=== PATIENT | male | born 1950 | race Caucasian/White ===

== ENCOUNTER 2023-02-04 08:43 | Emergency (ER) | payer MEDICARE, OTHER ==
[2023-02-04] MEDS ORDERED: Take Home: Cyclobenzaprine 10 MG Tab, 4 Tab Pack PO ONE (09:28)
== END 2023-02-04 10:02 | disposition home or self-care (01) ==
LOC: VM.ED 08:43
DX: M54.31 Sciatica, right side (principal); K21.9 Gastro-esophageal reflux disease without esophagitis; I48.91 Unspecified atrial fibrillation; I12.9 Hypertensive chronic kidney disease with stage 1 through stage 4 chronic kidney disease, or unspecified chronic kidney disease; E11.22 Type 2 diabetes mellitus with diabetic chronic kidney disease; N18.9 Chronic kidney disease, unspecified; N40.0 Benign prostatic hyperplasia without lower urinary tract symptoms; E66.9 Obesity, unspecified; Z68.30 Body mass index [BMI] 30.0-30.9, adult; Z79.4 Long term (current) use of insulin; Z79.82 Long term (current) use of aspirin; Z79.899 Other long term (current) drug therapy
CPT/HCPCS: 99283; 99284; A9270-GY

== ENCOUNTER 2024-03-30 06:58 | Emergency (ER) | payer MEDICARE, OTHER ==
[2024-03-30 08:00] LABS: BASOPHILS ABSOLUTE AUTO 0.1 x10^3/uL (0.0-0.2); BASOPHILS PERCENT AUTO 0.4 % (0.2-1.2); EOSINOPHILS ABSOLUTE AUTO 0.2 x10^3/uL (0.0-0.5); EOSINOPHILS PERCENT AUTO 1.2 % (0.0-4.0); HEMATOCRIT 35.5 % (40.0-52.0); HEMOGLOBIN 12.6 g/dL (14.0-18.0); IMMATURE GRAN ABSOLUTE AUTO 0.15 x10^3/uL (0.00-0.07); LYMPHOCYTES ABSOLUTE AUTO 2.1 x10^3/uL (1.0-4.8); LYMPHOCYTES PERCENT AUTO 14.7 % (25.0-50.0); MEAN CORPUSCULAR HEMOGLOBIN 30.2 pg (26.0-32.0); MEAN CORPUSCULAR HGB CONC 35.5 g/dL (32.0-36.0); MEAN CORPUSCULAR VOLUME 85.1 fL (78.0-93.0); MONOCYTES ABSOLUTE AUTO 0.9 x10^3/uL (0.0-0.8); MONOCYTES PERCENT AUTO 6.6 % (2.0-11.0); NEUTROPHILS ABSOLUTE AUTO 10.6 x10^3/uL (1.8-7.7); PLATELET COUNT,PLT 332 x10^3/uL (130-400); RED BLOOD CELL COUNT 4.17 x10^6/uL (4.5-6.0)
[2024-03-30 08:18] LABS: A/G RATIO 1.03; ALANINE AMINOTRANSFERASE,ALT 21 U/L (16-63); ALBUMIN 3.8 g/dL (3.4-5.0); ALKALINE PHOSPHATASE 130 U/L (46-116); ANION GAP 15.3 mmol/L (5-15); ASPARTATE AMNIOTRANSFERASE,AST 13 U/L (15-37); BILIRUBIN TOTAL 0.4 mg/dL (0.2-1.0); BLOOD UREA NITROGEN,BUN 82 mg/dL (7-18); CARBON DIOXIDE,CO2 28 mmol/L (21-32); CHLORIDE,CL 93 mmol/L (98-107); CREATININE 2.9 mg/dL (0.70-1.30); ESTIMATED GFR 22 mL/min (>=60); GLUCOSE RANDOM 222 mg/dL (70-99); LIPASE 23 U/L (19-71); POTASSIUM,K 3.3 mmol/L (3.5-5.1); PROTEIN TOTAL,TP 7.5 g/dL (6.4-8.2); SODIUM,NA 133 mmol/L (136-145)
[2024-03-30] MEDS: Lactated Ringers 1,000 ML IV SCH ×2 (08:20→10:15)
[2024-03-30] MEDS: Loperamide 2 MG Cap PO ONE (08:20)
[2024-03-30] MEDS: Iopamidol 612 MG/ML 100 ML Bottle IVPUSH ONE (08:21)
[2024-03-30 10:26] LABS: CALCIUM 8.9 mg/dL (8.5-10.1); CARBON DIOXIDE,CO2 29 mmol/L (21-32); CHLORIDE,CL 94 mmol/L (98-107); CREATININE 2.6 mg/dL (0.70-1.30); GLUCOSE RANDOM 191 mg/dL (70-99); POTASSIUM,K 3.6 mmol/L (3.5-5.1); SODIUM,NA 134 mmol/L (136-145)
[2024-03-30 10:27] LABS: ANION GAP 14.6 mmol/L (5-15); ESTIMATED GFR 25 mL/min (>=60)
[2024-03-30 10:28] LABS: BLOOD UREA NITROGEN,BUN 81 mg/dL (7-18)
[2024-03-30 11:34] LABS: APPEARANCE,URINE CLEAR (CLEAR); BILIRUBIN,URINE NEGATIVE (NEGATIVE); COLOR,URINE YELLOW (YELLOW); GLUCOSE,URINE NEGATIVE (NEGATIVE); KETONES,URINE NEGATIVE (NEGATIVE); LEUKOCYTE ESTERASE,URINE NEGATIVE (NEGATIVE); NITRITE,URINE NEGATIVE (NEGATIVE); OCCULT BLOOD,URINE NEGATIVE (NEGATIVE); PH,URINE 5.5 (5.0-8.0); PROTEIN,URINE NEGATIVE (NEGATIVE); UROBILINOGEN,URINE 0.2 EU/dL (0.2)
[2024-03-30 11:36] LABS: BACTERIA,URINE RARE /HPF (NOT SEEN); RBC,URINE NOT SEEN /HPF (NOT SEEN); SQUAMOUS EPITHELIAL CELLS,UR NOT SEEN /HPF (NOT SEEN); WBC,URINE NOT SEEN /HPF (NOT SEEN)
== END 2024-03-30 11:31 | disposition home or self-care (01) ==
LOC: VM.ED 06:58
DX: R19.7 Diarrhea, unspecified (principal); N32.9 Bladder disorder, unspecified; N17.9 Acute kidney failure, unspecified; K21.9 Gastro-esophageal reflux disease without esophagitis; E11.22 Type 2 diabetes mellitus with diabetic chronic kidney disease; I12.9 Hypertensive chronic kidney disease with stage 1 through stage 4 chronic kidney disease, or unspecified chronic kidney disease; N18.9 Chronic kidney disease, unspecified; E11.311 Type 2 diabetes mellitus with unspecified diabetic retinopathy with macular edema; E66.9 Obesity, unspecified; Z79.4 Long term (current) use of insulin; Z79.82 Long term (current) use of aspirin
CPT/HCPCS: 36415; 74176; 80048; 80053; 81001; 83690; 85025; 96360; 96361; 99284; 99284-25; A9270-GY; J7120

== ENCOUNTER 2024-04-08 10:35 | Inpatient (IN) | payer MEDICARE, OTHER ==
[2024-04-08] MEDS ORDERED: Sodium Chloride 0.9% 10 ML Syringe FLUSH PRN (10:50)
[2024-04-08] MEDS: Lactated Ringers 1,000 ML IV ONE ×2 (11:08→14:34)
[2024-04-08 11:11] LABS: BASOPHILS PERCENT AUTO 0.2 % (0.2-1.2); EOSINOPHILS ABSOLUTE AUTO 0.2 x10^3/uL (0.0-0.5); EOSINOPHILS PERCENT AUTO 1.1 % (0.0-4.0); HEMATOCRIT 33.2 % (40.0-52.0); HEMOGLOBIN 11.8 g/dL (14.0-18.0); LYMPHOCYTES ABSOLUTE AUTO 1.7 x10^3/uL (1.0-4.8); LYMPHOCYTES PERCENT AUTO 11.4 % (25.0-50.0); MEAN CORPUSCULAR HEMOGLOBIN 30.4 pg (26.0-32.0); MEAN CORPUSCULAR HGB CONC 35.5 g/dL (32.0-36.0); MEAN CORPUSCULAR VOLUME 85.6 fL (78.0-93.0); MONOCYTES PERCENT AUTO 6.6 % (2.0-11.0); NEUTROPHILS ABSOLUTE AUTO 11.6 x10^3/uL (1.8-7.7); PLATELET COUNT,PLT 308 x10^3/uL (130-400); RED BLOOD CELL COUNT 3.88 x10^6/uL (4.5-6.0); WHITE BLOOD CELL COUNT,WBC 14.6 x10^3/uL (4.0-10.0)
[2024-04-08 11:44] LABS: LACTIC ACID 3.3 mmol/L (0.4-2.0)
[2024-04-08 11:58] LABS: A/G RATIO 1.06; ALBUMIN 3.6 g/dL (3.4-5.0); ANION GAP 18.7 mmol/L (5-15); BILIRUBIN TOTAL 0.5 mg/dL (0.2-1.0); C-REACTIVE PROTEIN 1.24 mg/dL (<=0.50); EST CRCL DRUG DOSING (CG) 19.98 mL/min; MAGNESIUM 1.7 mg/dL (1.8-2.4); POTASSIUM,K 3.7 mmol/L (3.5-5.1)
[2024-04-08 11:59] LABS: CREATININE 3.4 mg/dL (0.70-1.30)
[2024-04-08] MEDS: Vancomycin 125 MG Cap PO SCH (12:08)
[2024-04-08 12:17] LABS: PROTHROMBIN TIME 10.1 SEC (8.9-11.5); PTT,PARTIAL THROMBOPLSTIN TIME 31.5 SEC (21.9-33.8)
[2024-04-08] MEDS ORDERED: Vancomycin 125 MG Cap PO SCH (13:00)
[2024-04-08 13:39] LABS: CORONAVIRUS COVID-19 NAA NEGATIVE (NEGATIVE); INFLUENZA A NAA NEGATIVE (NEGATIVE); INFLUENZA B NAA NEGATIVE (NEGATIVE); RESPIRATORY SYNCYTIAL VIR NAA NEGATIVE (NEGATIVE)
[2024-04-08 15:05] LABS: BILIRUBIN,URINE NEGATIVE (NEGATIVE); COLOR,URINE YELLOW (YELLOW); GLUCOSE,URINE NEGATIVE (NEGATIVE); KETONES,URINE NEGATIVE (NEGATIVE); LEUKOCYTE ESTERASE,URINE SMALL (NEGATIVE); NITRITE,URINE NEGATIVE (NEGATIVE); OCCULT BLOOD,URINE NEGATIVE (NEGATIVE); PROTEIN,URINE NEGATIVE (NEGATIVE); UROBILINOGEN,URINE 0.2 EU/dL (0.2)
[2024-04-08 15:06] LABS: APPEARANCE,URINE SLIGHTLY CLOUDY (CLEAR)
[2024-04-08 15:12] LABS: BACTERIA,URINE RARE /HPF (NOT SEEN); MUCUS,URINE OCCASIONAL /LPF (NOT SEEN); RBC,URINE 0-5 /HPF (NOT SEEN); SQUAMOUS EPITHELIAL CELLS,UR NOT SEEN /HPF (NOT SEEN)
[2024-04-08] MEDS ORDERED: Acetaminophen/Diphenhydramine 500-25 MG Tab PO PRN (16:48)
[2024-04-08] MEDS ORDERED: Calcium Carbonate 750 MG Tab.Chew PO PRN (16:48)
[2024-04-08] MEDS ORDERED: Ondansetron 4 MG Tab.DIS PO PRN (16:59)
[2024-04-08] MEDS ORDERED: Polyethylene Glycol 3350 Powder 17 GM Packet PO PRN (16:59)
[2024-04-08] MEDS: Insulin Lispro 100 Units/ML 3 ML Vial SUBCUT SCH (18:06)
[2024-04-08] MEDS: Pantoprazole 40 MG Tab.CR PO SCH (18:07)
[2024-04-08] MEDS: Fluticasone Propionate Nasal Spray 9.9 ML BOTTLE NASBOTH SCH (21:11)
[2024-04-08] MEDS: atorvaSTATin 10 MG Tab PO SCH (21:13)
[2024-04-09] MEDS: Aspirin 81 MG Tab.Chew PO SCH (02:36)
[2024-04-09] MEDS: Tamsulosin 0.4 MG Cap.ER PO SCH (02:36)
[2024-04-09 07:17] LABS: BASOPHILS PERCENT AUTO 0.3 % (0.2-1.2); EOSINOPHILS ABSOLUTE AUTO 0.3 x10^3/uL (0.0-0.5); HEMATOCRIT 32.1 % (40.0-52.0); HEMOGLOBIN 11.2 g/dL (14.0-18.0); LYMPHOCYTES ABSOLUTE AUTO 2.3 x10^3/uL (1.0-4.8); LYMPHOCYTES PERCENT AUTO 18.2 % (25.0-50.0); MEAN CORPUSCULAR HEMOGLOBIN 30.1 pg (26.0-32.0); MEAN CORPUSCULAR HGB CONC 34.9 g/dL (32.0-36.0); MEAN CORPUSCULAR VOLUME 86.3 fL (78.0-93.0); MONOCYTES ABSOLUTE AUTO 0.9 x10^3/uL (0.0-0.8); MONOCYTES PERCENT AUTO 7.2 % (2.0-11.0); NEUTROPHILS ABSOLUTE AUTO 8.8 x10^3/uL (1.8-7.7); NEUTROPHILS PERCENT AUTO 71.5 % (50.0-80.0); PLATELET COUNT,PLT 290 x10^3/uL (130-400); RED BLOOD CELL COUNT 3.72 x10^6/uL (4.5-6.0); WHITE BLOOD CELL COUNT,WBC 12.4 x10^3/uL (4.0-10.0)
[2024-04-09 07:33] LABS: CALCIUM 8.9 mg/dL (8.5-10.1); CREATININE 2.9 mg/dL (0.70-1.30); EST CRCL DRUG DOSING (CG) 22.69 mL/min; MAGNESIUM 1.8 mg/dL (1.8-2.4); POTASSIUM,K 3.3 mmol/L (3.5-5.1)
[2024-04-09 07:40] LABS: ANION GAP 12.3 mmol/L (5-15)
[2024-04-09] MEDS: Ferrous Sulfate 325 MG Tab PO SCH (08:25)
[2024-04-09] MEDS: Hydrochlorothiazide 12.5 MG Cap PO SCH (08:25)
[2024-04-09] MEDS: Ascorbic Acid 500 MG Tab PO SCH (08:25)
[2024-04-09] MEDS: atorvaSTATin 10 MG Tab PO SCH (08:26)
[2024-04-09] MEDS: Folic Acid 1 MG Tab PO SCH (08:27)
[2024-04-09] MEDS: Cholecalciferol (Vitamin D3) 10 MCG Tab PO SCH (08:27)
[2024-04-09] MEDS: Losartan 50 MG Tab PO SCH (08:27)
[2024-04-09] MEDS: Insulin Glarg,Human.Rec.Analog 100 Unit/ML 10 ML Vial SUBCUT SCH (08:30)
[2024-04-09] MEDS ORDERED: Tamsulosin 0.4 MG Cap.ER PO SCH (09:00)
[2024-04-09] MEDS ORDERED: Insulin Glarg,Human.Rec.Analog 100 Unit/ML 10 ML Vial SUBCUT SCH (09:00)
[2024-04-09] MEDS ORDERED: Aspirin 81 MG Tab.Chew PO SCH (09:00)
[2024-04-09] MEDS: Potassium Chloride 10 MEQ Tab.ER PO SCH (09:27)
[2024-04-09] MEDS: Enoxaparin 40 MG/0.4 ML Syringe SUBCUT SCH (09:42)
[2024-04-09] MEDS ORDERED: Enoxaparin 30 MG/0.3 ML Syringe SUBCUT SCH (12:00)
[2024-04-09] MEDS: Insulin Lispro 100 Units/ML 3 ML Vial SUBCUT SCH (12:02)
[2024-04-10 07:40] LABS: BASOPHILS PERCENT AUTO 0.2 % (0.2-1.2); EOSINOPHILS ABSOLUTE AUTO 0.3 x10^3/uL (0.0-0.5); EOSINOPHILS PERCENT AUTO 1.9 % (0.0-4.0); HEMATOCRIT 35.1 % (40.0-52.0); HEMOGLOBIN 12.4 g/dL (14.0-18.0); IMMATURE GRAN ABSOLUTE AUTO 0.11 x10^3/uL (0.00-0.07); LYMPHOCYTES ABSOLUTE AUTO 2.5 x10^3/uL (1.0-4.8); LYMPHOCYTES PERCENT AUTO 18.4 % (25.0-50.0); MEAN CORPUSCULAR HEMOGLOBIN 30.4 pg (26.0-32.0); MEAN CORPUSCULAR HGB CONC 35.3 g/dL (32.0-36.0); MONOCYTES ABSOLUTE AUTO 0.9 x10^3/uL (0.0-0.8); MONOCYTES PERCENT AUTO 6.9 % (2.0-11.0); NEUTROPHILS ABSOLUTE AUTO 9.7 x10^3/uL (1.8-7.7); NEUTROPHILS PERCENT AUTO 71.8 % (50.0-80.0); PLATELET COUNT,PLT 327 x10^3/uL (130-400); RED BLOOD CELL COUNT 4.08 x10^6/uL (4.5-6.0); WHITE BLOOD CELL COUNT,WBC 13.5 x10^3/uL (4.0-10.0)
[2024-04-10 07:48] LABS: CALCIUM 9.1 mg/dL (8.5-10.1); CREATININE 2.8 mg/dL (0.70-1.30); EST CRCL DRUG DOSING (CG) 23.5 mL/min; POTASSIUM,K 3.7 mmol/L (3.5-5.1)
[2024-04-10 07:50] LABS: ANION GAP 13.7 mmol/L (5-15)
[2024-04-10] MEDS: Heparin Sodium 5,000 Units/ML Vial SUBCUT SCH (08:40)
[2024-04-10] MEDS: Insulin Glarg,Human.Rec.Analog 100 Unit/ML 10 ML Vial SUBCUT SCH (08:42)
== END 2024-04-10 13:00 | disposition home or self-care (01) | DRG 683 ==
LOC: VM.ED 10:35 → VM.MS 12:38
PROVIDERS: ADMIT Physician Assistant; ATTEND Internal Medicine
DX: N17.9 Acute kidney failure, unspecified (principal); I10 Essential (primary) hypertension; E11.9 Type 2 diabetes mellitus without complications; A09 Infectious gastroenteritis and colitis, unspecified; L97.819 Non-pressure chronic ulcer of other part of right lower leg with unspecified severity; Z68.42 Body mass index [BMI] 45.0-49.9, adult; E66.9 Obesity, unspecified; E11.22 Type 2 diabetes mellitus with diabetic chronic kidney disease; N18.32 Chronic kidney disease, stage 3b; I12.9 Hypertensive chronic kidney disease with stage 1 through stage 4 chronic kidney disease, or unspecified chronic kidney disease; I48.0 Paroxysmal atrial fibrillation; N40.0 Benign prostatic hyperplasia without lower urinary tract symptoms; Z66 Do not resuscitate; K21.9 Gastro-esophageal reflux disease without esophagitis; E11.622 Type 2 diabetes mellitus with other skin ulcer; N32.89 Other specified disorders of bladder; E11.311 Type 2 diabetes mellitus with unspecified diabetic retinopathy with macular edema; E86.0 Dehydration; E11.65 Type 2 diabetes mellitus with hyperglycemia; E87.6 Hypokalemia; E66.01 Morbid (severe) obesity due to excess calories; I89.0 Lymphedema, not elsewhere classified; I87.2 Venous insufficiency (chronic) (peripheral); Z79.82 Long term (current) use of aspirin; Z79.899 Other long term (current) drug therapy; Z79.4 Long term (current) use of insulin
CPT/HCPCS: 0241U; 36415; 80048; 80053; 81001; 82150; 82947; 83605; 83690; 83735; 85025; 85610; 85730; 86140; 87045; 87046; 87086; 87328; 87329; 87493; 93005; 96360; 97116-GP; 97162-GP; 97165-GO; 97535-GO; 99285-25; A9270-GY; J1644; J1650; J1815-GY; J7120

== ENCOUNTER 2024-09-10 07:08 | Day surgery (SDC) | payer MEDICARE, OTHER ==
[2024-09-10] MEDS: Lactated Ringers 1,000 ML IV SCH (07:23)
[2024-09-10] MEDS ORDERED: Propofol 200 MG/20 ML SDV ONE (08:18)
[2024-09-10] MEDS ORDERED: fentaNYL 100 MCG/2 ML SDV ONE (08:18)
== END 2024-09-10 10:02 | disposition home or self-care (01) ==
LOC: VM.SDS 07:08
PROVIDERS: ATTEND Family Medicine
DX: K31.7 Polyp of stomach and duodenum (principal); K21.9 Gastro-esophageal reflux disease without esophagitis; K44.9 Diaphragmatic hernia without obstruction or gangrene; E11.22 Type 2 diabetes mellitus with diabetic chronic kidney disease; I12.9 Hypertensive chronic kidney disease with stage 1 through stage 4 chronic kidney disease, or unspecified chronic kidney disease; N18.32 Chronic kidney disease, stage 3b; I48.0 Paroxysmal atrial fibrillation; Z79.4 Long term (current) use of insulin; Z79.84 Long term (current) use of oral hypoglycemic drugs; Z79.82 Long term (current) use of aspirin; Z79.899 Other long term (current) drug therapy
CPT/HCPCS: 43239; 82947; J2704; J3010; J7120; 88305